=== PATIENT | male | born 1975 | race African-American/Black ===

== ENCOUNTER 2017-03-22 05:07 | Emergency (ER) | payer SELFPAY ==
[~2017-03-22] VITALS: Ht 182.9 cm; Wt 68.0 kg
[2017-03-22 05:20] VITALS: BP 124/85
[2017-03-22] MEDS ORDERED: DIPH25CA58 PO (05:45)
[2017-03-22] MEDS ORDERED: PRED50TA PO (05:45)
--- NOTE | 2017-03-22 05:45 | PHYS DOC ---
Past Medical History Past Medical History: No Pertinent History Past Surgical History: No Surgical History Alcohol Use: None Drug Use: None Adult General Chief Complaint Chief Complaint: INSECT BITE HPI HPI Patient is a 41 year old gentleman who presents here today secondary to swelling to his left upper lip that started last night. Patient reports that he was doing yard work yesterday when he felt an insect bite him on the lip and he had some swelling in that area. Patient took some Benadryl last night reports that the itching that he had on his body is improved however the swelling to his lip has remained the same. Patient denies any other symptomatology. Patient has any fevers shakes chills nausea vomiting diarrhea chest pain shortness of breath cough cold or rhinorrhea. Patient denies any wheezing. Patient denies any difficulty swallowing. Patient denies any globus sensation in his throat. Patient denies any history of hypertension. Patient is not any medications. Patient denies any new allergens that could've exacerbated this. Review of systems: Constitutional: Denies fever or chills Eyes: Denies change in visual acuity, redness, or eye pain HENT: Denies nasal congestion or sore throat All other review systems are negative except as documented in the history of present illness portion. Physical exam: Constitutional: Well developed, well nourished, no acute distress, non-toxic appearance. HENT: Normocephalic, atraumatic, bilateral external ears normal, nose normal. Eyes: EOMI, conjunctiva normal, no discharge. Neck: Normal range of motion, no tenderness, supple, no stridor. Cardiovascular:Heart rate regular rhythm Lungs & Thorax: Bilateral breath sounds clear to auscultation no respiratory distress Abdomen: Bowel sounds normal, soft, no tenderness, no masses, no pulsatile masses. Skin: Warm, dry, no erythema, no rash. Back: No tenderness, no CVA tenderness. Extremities: No tenderness, no cyanosis, no clubbing, ROM intact, no edema. Neurologic: Alert and oriented X 3, normal motor function, normal sensory function, no focal deficits noted. Psychologic: Affect normal, judgement normal, mood normal. Patient's left upper lip appears to be edematous with angioedema. Patient's airway is otherwise intact. Patient has no uvular edema. Patient has no tongue edema. Assessment and plan Angioedema of left upper lip. Patient's clinically hemodynamically stable without any evidence of airway compromise. Patient will be given a shot of Benadryl IM and by mouth prednisone will be sent home with both. Current Medications Current Medications Current Medications Medications (Trade) Dose Ordered Sig/Lolita Start Time Stop Time Status Last Admin Dose Admin Diphenhydramine HCl (Benadryl) 50 mg 1X ONCE 03/22/17 05:45 03/22/17 05:46 UNV Prednisone (Prednisone) 40 mg 1X ONCE 03/22/17 05:45 03/22/17 05:46 UNV Allergies Allergies Allergies Coded Allergies Type Severity Reaction Last Updated Verified No Known Drug Allergies 03/22/17 No Current Patient Data Vital Signs Vital Signs Date Time Temp Pulse Resp B/P (MAP) Pulse Ox O2 Delivery O2 Flow Rate FiO2 03/22/17 05:20 98.3 85 18 98 Room Air 98.3 EKG EKG [] Radiology/Procedures Radiology/Procedures [] Course & Med Decision Making Course & Med Decision Making Pertinent Labs and Imaging studies reviewed. (See chart for details) [] Dragon Disclaimer Dragon Disclaimer This electronic medical record was generated, in whole or in part, using a voice recognition dictation system. Departure Departure Impression: Primary Impression: Angioedema Additional Impression: Insect bite Disposition: HOME, SELF-CARE Condition: IMPROVED Referrals: NO PCP (PCP) Patient Instructions: Angioedema, Insect Bite Scripts Prednisone (PREDNISONE) 50 Mg Tablet 1 TAB PO DAILY, #5 TAB Prov: LIZETT CHO MD 03/22/17 Diphenhydramine Hcl (BENADRYL) 25 Mg Capsule 2 CAP PO Q6HRS Y for ITCHING, #14 CAP 2 Refills Prov: LIZETT CHO MD 03/22/17 Problem Qualifiers LIZETT CHO MD Mar 22, 2017 05:45
[2017-03-22] MEDS ORDERED: diphenhydrAMINE 50 MG/ML VIAL IM ONE (06:00)
[2017-03-22] MEDS ORDERED: predniSONE 20 MG TABLET PO ONE (06:00)
== END 2017-03-22 06:10 | disposition home or self-care (01) ==
LOC: ER 05:07
DX: T78.3XXA Angioneurotic edema, initial encounter (principal); S00.561A Insect bite (nonvenomous) of lip, initial encounter; W57.XXXA Bitten or stung by nonvenomous insect and other nonvenomous arthropods, initial encounter; Y93.89 Activity, other specified; Y92.89 Other specified places as the place of occurrence of the external cause; Y99.8 Other external cause status
CPT/HCPCS: 96372; 99283; J1200; J7512

== ENCOUNTER 2017-11-02 23:23 | Emergency (ER) | payer OTHER | END 2017-11-03 00:05 | disposition home or self-care (01) | LOC: ER 23:23 | DX: M72.2 Plantar fascial fibromatosis (principal); F20.9 Schizophrenia, unspecified | CPT/HCPCS: 99282 ==

== ENCOUNTER 2017-11-03 07:45 | Inpatient (IN) | payer MEDICAID, OTHER ==
[2017-11-03 08:27] LABS: ADD MAN DIFF? NO; BILIRUBIN,URINE NEGATIVE (NEG); CLARITY,URINE CLOUDY; COLOR,URINE YELLOW; GLUCOSE,URINE NEGATIVE (NEG); NITRITE,URINE NEGATIVE (NEG); PH,URINE 6.5; PROTEIN,URINE NEGATIVE (NEG-TRACE)
[2017-11-03 08:34] LABS: BASO # 0.1 x10^3/uL (0.0-0.2); BASO % 1 % (0-3); EOS # 0.2 x10^3/uL (0.0-0.7); EOS % 3 % (0-3); HEMOGLOBIN 14.5 g/dL (13.0-17.5); LYMPH # 1.7 x10^3/uL (1.0-4.8); LYMPH % 29 % (24-48); MEAN CORPUSCULAR HEMOGLOBIN 29 pg (25-35); MEAN CORPUSCULAR HGB CONC 34 g/dL (31-37); MEAN CORPUSCULAR VOLUME 87 fL (79-100); MONO # 0.6 x10^3/uL (0.0-1.1); MONO % 10 % (0-9); NEUT # 3.4 x10^3uL (1.8-7.7); NEUT % 57 % (31-73); PLATELET COUNT 221 x10^3/uL (140-400); RED BLOOD COUNT 4.94 x10^6/uL (4.30-5.70); RED CELL DISTRIBUTION WIDTH 13.9 % (11.5-14.5)
[2017-11-03 08:36] LABS: AMPHETAMINE/METHAMPHETAMINE NEG (NEG); BARBITURATES NEG (NEG); BENZODIAZEPINES NEG (NEG); CANNABINOIDS POS (NEG); COCAINE POS (NEG); ETHANOL, URINE NEG (NEG); METHADONE NEG (NEG); OPIATES NEG (NEG); PHENCYCLIDINE NEG (NEG)
[2017-11-03 08:38] LABS: ANION GAP 9 (6-14); BACTERIA,URINE FEW /HPF (0-FEW); BLOOD UREA NITROGEN 10 mg/dL (8-26); CALCIUM 9.1 mg/dL (8.5-10.1); CARBON DIOXIDE 27 mmol/L (21-32); CHLORIDE 105 mmol/L (98-107); CREATININE 1.3 mg/dL (0.7-1.3); GFR 73.3; GLUCOSE 115 mg/dL (70-99); POTASSIUM 3.9 mmol/L (3.5-5.1); RBC,URINE 0 /HPF (0-2); SODIUM 141 mmol/L (136-145); SQUAMOUS EPITHELIAL CELL,UR OCC /LPF
[2017-11-03 08:42] LABS: ACETAMIN < 2 mcg/ml (10-30); SALIC < 2.8 mg/dL (2.8-20.0)
[2017-11-03] MEDS ORDERED: ACETAMINOPHEN 325 MG TABLET. PO (15:15)
[2017-11-03] MEDS ORDERED: ONDANSETRON PF 4 MG/2 ML VIAL. IV (15:15)
[2017-11-03] MEDS: OLANZapine 5 MG TABLET PO (21:15)
[2017-11-04 03:14] LABS: HEMOGLOBIN A1C 5.4 % (4.8-5.6)
[2017-11-04] MEDS: OLANZapine 5 MG TABLET PO ×2 (09:00→21:00)
[2017-11-04] MEDS: ENOXAPARIN 40 MG/0.4 ML SYRINGE. SQ (13:00)
[2017-11-05] MEDS: OLANZapine 5 MG TABLET PO ×3 (09:00→20:39)
[2017-11-05] MEDS ORDERED: ZOLPIDEM 5 MG TABLET. PO (12:15)
[2017-11-05] MEDS: ENOXAPARIN 40 MG/0.4 ML SYRINGE. SQ (13:00)
[2017-11-05] MEDS: ZOLPIDEM 5 MG TABLET. PO (20:38)
[2017-11-06] MEDS: OLANZapine 5 MG TABLET PO (09:00)
[2017-11-06] MEDS: ENOXAPARIN 40 MG/0.4 ML SYRINGE. SQ (12:21)
== END 2017-11-06 19:33 | DRG 641 ==
LOC: ER 07:45 → 5 SOUTH 10:00
DX: R73.9 Hyperglycemia, unspecified (principal); R45.851 Suicidal ideations; F20.0 Paranoid schizophrenia; Z91.19 Patient's noncompliance with other medical treatment and regimen; Z79.899 Other long term (current) drug therapy
CPT/HCPCS: 36415; 80048; 80307; 80329; 81001; 83036; 85025; 87086; 93005; 99285; 99285-25

== ENCOUNTER 2018-08-20 22:15 | Emergency (ER) | payer MEDICAID ==
[~2018-08-20] VITALS: Ht 182.9 cm; Wt 68.0 kg
[~2018-08-20 22:15] MED LIST: DIPH25CA58 PO; IBUP-1060 PO; PRED50TA PO
[2018-08-20] MEDS: DEXAMETHASONE 4 MG TABLET PO ONE (23:24)
--- NOTE | 2018-08-20 23:35 | PHYS DOC ---
Past Medical History Past Medical History: Schizophrenia Additional Past Medical Histor: paranoid schizophrenia Past Surgical History: No Surgical History Smoking: Less than 1pk/day Alcohol Use: None Drug Use: None Adult General Chief Complaint Chief Complaint: FLU SYMPTOM HPI HPI Patient is a 42 year old male who presents with a one day history of nausea, vomiting, chills, and dry cough associated with dull chest pain after coughing with some wheezing. He has a history of paranoid schizophrenia and has been off his medication for 3 weeks because he doesn't think it has helped a whole lot and he wants to get this current illness figured out first. He states that he is able to eat and drink like regular he just has a little bit of nausea afterwards. He denies diarrhea, constipation, sick contacts, and reports that he hasn't had his flu shot this year. He states that his visual hallucinations have gotten worse over the past week but denies suicidal or homicidal ideation. Review of Systems Review of Systems Constitutional: Denies fever, reports chills [] Eyes: Denies change in visual acuity, redness, or eye pain [] HENT: Denies nasal congestion or sore throat [] Respiratory: Reports cough or shortness of breath [] Cardiovascular: Reports chest pain, denies palpitations [] GI: Denies abdominal pain, diarrhea; reports nausea, vomiting [] : Denies dysuria or hematuria [] Integument: Denies rash or skin lesions [] Neurologic: Denies headache, focal weakness or sensory changes [] Psychiatric: reports visual hallucinations, denies suicidal or homicidal ideation Complete systems were reviewed and found to be within normal limits, except as documented in this note. Current Medications Current Medications Current Medications Medications (Trade) Dose Ordered Sig/Lolita Start Time Stop Time Status Last Admin Dose Admin Dexamethasone (Decadron) 10 mg 1X ONCE 08/20/18 23:30 08/20/18 23:31 DC 08/20/18 23:24 10 MG Allergies Allergies Allergies Coded Allergies Type Severity Reaction Last Updated Verified No Known Drug Allergies 03/22/17 No Physical Exam Physical Exam Constitutional: Well developed, well nourished, no acute distress, non-toxic appearance. [] HENT: Normocephalic, atraumatic, nose normal, TMs clear, no pharyngeal erythema or exudates Eyes: Conjunctiva normal, no discharge. [] Neck: Normal range of motion, no tenderness, supple, no meningeal signs Cardiovascular: Heart rate regular rhythm, no murmur [] Lungs & Thorax: Bilateral breath sounds clear to auscultation [] Abdomen: Soft, no tenderness. [] Skin: Warm, dry, no erythema, no rash. [] Extremities: No tenderness, no edema. [] Neurologic: Alert and oriented X 3, no focal deficits noted. [] Psychologic: Affect anxious, judgement normal Current Patient Data Vital Signs Vital Signs Date Time Temp Pulse Resp B/P (MAP) Pulse Ox O2 Delivery O2 Flow Rate FiO2 08/20/18 22:20 97.3 90 18 159/91 (113) 98 Room Air 97.3 Lab Values Laboratory Tests Test 08/20/18 23:20 08/21/18 01:00 Influenza Type A Antigen Negative (NEGATIVE) Influenza Type B Antigen Negative (NEGATIVE) White Blood Count 6.4 x10^3/uL (4.0-11.0) Red Blood Count 5.43 x10^6/uL (4.30-5.70) Hemoglobin 16.9 g/dL (13.0-17.5) Hematocrit 48.3 % (39.0-53.0) Mean Corpuscular Volume 89 fL (79-100) Mean Corpuscular Hemoglobin 31 pg (25-35) Mean Corpuscular Hemoglobin Concent 35 g/dL (31-37) Red Cell Distribution Width 13.6 % (11.5-14.5) Platelet Count 189 x10^3/uL (140-400) Neutrophils (%) (Auto) 54 % (31-73) Lymphocytes (%) (Auto) 34 % (24-48) Monocytes (%) (Auto) 9 % (0-9) Eosinophils (%) (Auto) 2 % (0-3) Basophils (%) (Auto) 1 % (0-3) Neutrophils # (Auto) 3.4 x10^3uL (1.8-7.7) Lymphocytes # (Auto) 2.2 x10^3/uL (1.0-4.8) Monocytes # (Auto) 0.5 x10^3/uL (0.0-1.1) Eosinophils # (Auto) 0.1 x10^3/uL (0.0-0.7) Basophils # (Auto) 0.1 x10^3/uL (0.0-0.2) Sodium Level 139 mmol/L (136-145) Potassium Level 4.5 mmol/L (3.5-5.1) Chloride Level 104 mmol/L (98-107) Carbon Dioxide Level 24 mmol/L (21-32) Anion Gap 11 (6-14) Blood Urea Nitrogen 14 mg/dL (8-26) Creatinine 1.1 mg/dL (0.7-1.3) Estimated GFR (Cockcroft-Gault) 88.4 BUN/Creatinine Ratio 13 (6-20) Glucose Level 110 mg/dL (70-99) H Calcium Level 9.4 mg/dL (8.5-10.1) Magnesium Level 1.9 mg/dL (1.8-2.4) Total Bilirubin 0.5 mg/dL (0.2-1.0) Aspartate Amino Transferase (AST) 29 U/L (15-37) Alanine Aminotransferase (ALT) 31 U/L (16-63) Alkaline Phosphatase 91 U/L (46-116) Total Protein 7.4 g/dL (6.4-8.2) Albumin 3.9 g/dL (3.4-5.0) Albumin/Globulin Ratio 1.1 (1.0-1.7) Salicylates Level < 2.8 mg/dL (2.8-20.0) L Salicylate Last Dose Date Unknown Salicylate Last Dose Time Unknown Urine Opiates Screen Neg (NEG) Urine Methadone Screen Neg (NEG) Acetaminophen Level < 2 mcg/ml (10-30) L Acetaminophen Last Dose Date Unknown Acetaminophen Last Dose Time Unknown Urine Barbiturates Neg (NEG) Urine Phencyclidine Screen Neg (NEG) Urine Amphetamine/Methamphetamine Neg (NEG) Urine Benzodiazepines Screen Neg (NEG) Urine Cocaine Screen Neg (NEG) Urine Cannabinoids Screen Pos (NEG) Ethyl Alcohol Level < 10 mg/dL (0-10) Urine Ethyl Alcohol Neg (NEG) Laboratory Tests 08/21/18 01:00 Laboratory Tests 08/21/18 01:00 EKG EKG [] Radiology/Procedures Radiology/Procedures PROCEDURE: CHEST PA & LATERAL PROCEDURE: CHEST PA LATERAL CLINICAL INDICATION: COUGH COMPARISON: None FINDINGS: Heart is normal in size. Mild central bilateral peribronchial wall thickening is seen. No focal consolidation. No pneumothorax or pleural effusion. Visualized bony thorax within normal limits. IMPRESSION: Mild bronchitis. Electronically signed by: Alex Smith DO (08/20/2018 11:38 PM) [facility] Course & Med Decision Making Course & Med Decision Making Pertinent Labs and Imaging studies reviewed. (See chart for details) Patient is a 42 YO M that presented with flu-like symptoms that began yesterday. Patient reported persistent dry cough with chest pain after episodes of coughing. Rapid flu was negative and CXR showed mild bronchitis. One time dose of dexamethasone was administered in the ED and prescription for ProAir was provided. Patient reported increased hallucinations and was seeking help with management of his psychiatric illness, he was counselled on multiple options of psychiatric and guidance centers that could offer help. @0023 Patient was counselled on psychiatric illness and he stated that he needed a bed tonight, I explained that he was not in a situation to be admitted to an inpatient facility and he could call and follow up as an outpatient. At this point he stated that he was having suicidal thoughts where previously he had denied them. Reports the "hallucinations make him suicidal." @0130 PAT assessment completed, patient now changing story denying previous prescriptions for schizophrenia, awaiting laboratory values. Psych director home health to contact [facility] regarding patient for possible further psychiatric evaluation.. @0200 Web Applications Architect called [facility] refusing need for transfer at this time. Patient has been there multiple times previously. Patient does not want to be put on medications and is noncompliant. Web Applications Architect in agreement that patient is safe for discharge home with outpatient follow-up. Resources therefore provided. Patient stable for discharge with outpatient follow-up with PCP/psych. Discussed findings and plan with patient, who acknowledges understanding and agreement. Dragon Disclaimer Dragon Disclaimer This electronic medical record was generated, in whole or in part, using a voice recognition dictation system. Departure Departure Impression: Primary Impression: Bronchitis Additional Impressions: Hx of paranoid schizophrenia Hx of medication noncompliance Suicidal ideation Disposition: 01 HOME, SELF-CARE Condition: STABLE Referrals: NO PCP (PCP) Patient Instructions: Acute Bronchitis, [id number], Schizophrenia, Suicidal Feelings, How to Help Yourself Additional Instructions: Please follow up with outpatient psychiatric center. Please see handouts. Scripts Albuterol Sulfate (Proair Hfa) 8.5 Gm Hfa.aer.ad 1 PUFF INH PRN Q6HRS PRN for WHEEZING, #1 INHALER Prov: SELENA DENIS DO 08/21/18 Problem Qualifiers SELENA DENIS DO Aug 20, 2018 23:35
--- NOTE | 2018-08-20 23:43 | RAD ---
PROCEDURE: CHEST PA LATERAL CLINICAL INDICATION: COUGH COMPARISON: None FINDINGS: Heart is normal in size. Mild central bilateral peribronchial wall thickening is seen. No focal consolidation. No pneumothorax or pleural effusion. Visualized bony thorax within normal limits. IMPRESSION: Mild bronchitis. Electronically signed by: Alex Smith DO (08/20/2018 11:38 PM) [facility]
[2018-08-21 00:09] LABS: INFLUENZA A PATIENT NEGATIVE (NEGATIVE)
[2018-08-21 00:10] LABS: INFLUENZA B PATIENT NEGATIVE (NEGATIVE)
[2018-08-21] MEDS ORDERED: ALBU2.5V8 INH (00:18)
[2018-08-21 01:16] LABS: BARBITURATES NEG (NEG); BENZODIAZEPINES NEG (NEG); CANNABINOIDS POS (NEG); COCAINE NEG (NEG); METHADONE NEG (NEG); OPIATES NEG (NEG); PHENCYCLIDINE NEG (NEG)
[2018-08-21 01:26] LABS: AMPHETAMINE/METHAMPHETAMINE NEG (NEG); BASO # 0.1 x10^3/uL (0.0-0.2); BASO % 1 % (0-3); EOS # 0.1 x10^3/uL (0.0-0.7); EOS % 2 % (0-3); HEMATOCRIT 48.3 % (39.0-53.0); HEMOGLOBIN 16.9 g/dL (13.0-17.5); LYMPH # 2.2 x10^3/uL (1.0-4.8); LYMPH % 34 % (24-48); MEAN CORPUSCULAR HEMOGLOBIN 31 pg (25-35); MEAN CORPUSCULAR HGB CONC 35 g/dL (31-37); MEAN CORPUSCULAR VOLUME 89 fL (79-100); MONO # 0.5 x10^3/uL (0.0-1.1); MONO % 9 % (0-9); NEUT # 3.4 x10^3uL (1.8-7.7); NEUT % 54 % (31-73); PLATELET COUNT 189 x10^3/uL (140-400); RED BLOOD COUNT 5.43 x10^6/uL (4.30-5.70); RED CELL DISTRIBUTION WIDTH 13.6 % (11.5-14.5); WHITE BLOOD COUNT 6.4 x10^3/uL (4.0-11.0)
[2018-08-21 01:45] LABS: CALCIUM 9.4 mg/dL (8.5-10.1); CREATININE 1.1 mg/dL (0.7-1.3); GFR 88.4; POTASSIUM 4.5 mmol/L (3.5-5.1)
[2018-08-21 01:51] LABS: ACETAMIN < 2 mcg/ml (10-30); ALBUMIN 3.9 g/dL (3.4-5.0); ALBUMIN/GLOBULIN RATIO 1.1 (1.0-1.7); ETHANOL < 10 mg/dL (0-10); MAGNESIUM 1.9 mg/dL (1.8-2.4); SALIC < 2.8 mg/dL (2.8-20.0); TOTAL BILIRUBIN 0.5 mg/dL (0.2-1.0); TOTAL PROTEIN 7.4 g/dL (6.4-8.2)
[2018-08-21 02:30] VITALS: BP 153/90
== END 2018-08-21 03:00 | disposition home or self-care (01) ==
LOC: ER 22:15
DX: J40 Bronchitis, not specified as acute or chronic (principal); R45.851 Suicidal ideations; F17.200 Nicotine dependence, unspecified, uncomplicated; R44.1 Visual hallucinations; F20.0 Paranoid schizophrenia; Z91.14 Patient's other noncompliance with medication regimen
CPT/HCPCS: 36415; 71046; 80053; 80307; 80329; 83735; 85025; 87804; 99284; G0480; G6039; J8540

== ENCOUNTER 2019-04-18 21:43 | Emergency (ER) | payer MEDICAID ==
[~2019-04-18] VITALS: Ht 177.8 cm; Wt 68.0 kg
[~2019-04-18 21:43] MED LIST changes: +ALBU2.5V8 INH
[2019-04-18 21:56] VITALS: BP 143/85
[2019-04-18 22:57] LABS: BASO # 0.1 x10^3/uL (0.0-0.2); BASO % 1 % (0-3); EOS # 0.1 x10^3/uL (0.0-0.7); EOS % 2 % (0-3); HEMATOCRIT 40.5 % (39.0-53.0); LYMPH # 2.4 x10^3/uL (1.0-4.8); LYMPH % 39 % (24-48); MEAN CORPUSCULAR HEMOGLOBIN 30 pg (25-35); MEAN CORPUSCULAR HGB CONC 35 g/dL (31-37); MEAN CORPUSCULAR VOLUME 87 fL (79-100); MONO # 0.5 x10^3/uL (0.0-1.1); MONO % 9 % (0-9); NEUT % 49 % (31-73); PLATELET COUNT 210 x10^3/uL (140-400); RED BLOOD COUNT 4.66 x10^6/uL (4.30-5.70); RED CELL DISTRIBUTION WIDTH 13.5 % (11.5-14.5); WHITE BLOOD COUNT 6.2 x10^3/uL (4.0-11.0)
[2019-04-18 23:00] LABS: BILIRUBIN,URINE NEGATIVE (NEG); CLARITY,URINE CLEAR; COLOR,URINE YELLOW; NITRITE,URINE NEGATIVE (NEG); PROTEIN,URINE NEGATIVE (NEG-TRACE)
[2019-04-18 23:07] LABS: AMPHETAMINE/METHAMPHETAMINE NEG (NEG); BACTERIA,URINE FEW /HPF (0-FEW); BARBITURATES NEG (NEG); BENZODIAZEPINES NEG (NEG); CANNABINOIDS POS (NEG); COCAINE POS (NEG); METHADONE NEG (NEG); OPIATES NEG (NEG); PHENCYCLIDINE NEG (NEG); SQUAMOUS EPITHELIAL CELL,UR FEW /LPF
[2019-04-18 23:07] LABS: CREATININE 1.2 mg/dL (0.7-1.3); GFR 79.6; POTASSIUM 4.3 mmol/L (3.5-5.1)
[2019-04-18 23:13] LABS: ALBUMIN 3.3 g/dL (3.4-5.0); ALBUMIN/GLOBULIN RATIO 1.1 (1.0-1.7); MAGNESIUM 1.9 mg/dL (1.8-2.4); TOTAL BILIRUBIN 0.4 mg/dL (0.2-1.0); TOTAL PROTEIN 6.2 g/dL (6.4-8.2)
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
--- NOTE | 2019-04-19 07:17 | EKG ---
[facility] [address] [place] [address] Test Date: 2019-04-18 Test Time: 22:12:35 Pat Name: DANIEL NAVA Department: Room: Gender: M Television Cameraman: : 1975 Requested By: SELENA DENIS Order Number: [id number] Reading MD: Measurements Intervals [place] Rate: 78 P: 59 AL: 148 QRS: 64 QRSD: 86 T: 34 QT: 364 QTc: 418 Interpretive Statements SINUS RHYTHM OTHERWISE NORMAL ECG RI6.01 No previous ECG available for comparison
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
== END 2019-04-19 00:02 | disposition home or self-care (01) ==
LOC: ER 21:43
DX: S80.01XA Contusion of right knee, initial encounter (principal); F20.0 Paranoid schizophrenia; F12.10 Cannabis abuse, uncomplicated; F14.10 Cocaine abuse, uncomplicated; G43.909 Migraine, unspecified, not intractable, without status migrainosus; F17.210 Nicotine dependence, cigarettes, uncomplicated; Z88.8 Allergy status to other drugs, medicaments and biological substances; W22.8XXA Striking against or struck by other objects, initial encounter; Y93.89 Activity, other specified; Y92.89 Other specified places as the place of occurrence of the external cause; Y99.8 Other external cause status
CPT/HCPCS: 36415; 73562; 80053; 80307; 81001; 83605; 83735; 85025; 93005; 99285; G0480

== ENCOUNTER 2019-04-23 21:22 | Emergency (ER) | payer MEDICAID ==
[~2019-04-23] VITALS: Ht 182.9 cm; Wt 68.0 kg
[2019-04-23 21:22] VITALS: BP 142/90
[2019-04-23 21:49] LABS: BASO # 0.1 x10^3/uL (0.0-0.2); BASO % 1 % (0-3); EOS # 0.3 x10^3/uL (0.0-0.7); EOS % 4 % (0-3); HEMATOCRIT 44.7 % (39.0-53.0); HEMOGLOBIN 15.2 g/dL (13.0-17.5); LYMPH # 2.9 x10^3/uL (1.0-4.8); LYMPH % 45 % (24-48); MEAN CORPUSCULAR HEMOGLOBIN 30 pg (25-35); MEAN CORPUSCULAR HGB CONC 34 g/dL (31-37); MEAN CORPUSCULAR VOLUME 88 fL (79-100); MONO # 0.4 x10^3/uL (0.0-1.1); MONO % 6 % (0-9); NEUT # 2.8 x10^3/uL (1.8-7.7); NEUT % 44 % (31-73); PLATELET COUNT 241 x10^3/uL (140-400); RED CELL DISTRIBUTION WIDTH 14.1 % (11.5-14.5); WHITE BLOOD COUNT 6.4 x10^3/uL (4.0-11.0)
[2019-04-23 21:50] LABS: BILIRUBIN,URINE NEGATIVE (NEG); CLARITY,URINE CLEAR; COLOR,URINE YELLOW; NITRITE,URINE NEGATIVE (NEG); PROTEIN,URINE NEGATIVE (NEG-TRACE)
[2019-04-23 21:56] LABS: BARBITURATES NEG (NEG); BENZODIAZEPINES NEG (NEG); CANNABINOIDS POS (NEG); COCAINE POS (NEG); METHADONE NEG (NEG); OPIATES NEG (NEG); PHENCYCLIDINE NEG (NEG); SQUAMOUS EPITHELIAL CELL,UR FEW /LPF
[2019-04-23 21:57] LABS: AMPHETAMINE/METHAMPHETAMINE NEG (NEG); BACTERIA,URINE 0 /HPF (0-FEW); CALCIUM 9.2 mg/dL (8.5-10.1); CREATININE 1.1 mg/dL (0.7-1.3); POTASSIUM 4.1 mmol/L (3.5-5.1); RBC,URINE RARE /HPF (0-2); WBC,URINE OCC /HPF (0-4)
--- NOTE | 2019-04-23 21:57 | PHYS DOC ---
Past Medical History Past Medical History: Migraines, Schizophrenia Additional Past Medical Histor: paranoid schizophrenia Past Surgical History: No Surgical History Alcohol Use: Occasionally Drug Use: Marijuana Adult General Chief Complaint Chief Complaint: HALLUCINATIONS AUDIBLE/VISUAL HPI HPI 43-year-old male presents to the emergency Department with complaints of hallucinations. Patient is a known paranoid schizophrenic, he was seen here on April 18 with similar complaints. He describes hallucinations �3 weeks. Visual as well as auditory, he denies any suicidal or homicidal ideation. Patient was sent RSI on the and states he was discharged. He denies any chest pain, shortness breath, nausea, vomiting, abdominal pain, headache, visual changes. Review of Systems Review of Systems Constitutional: Denies fever or chills [] Respiratory: Denies cough or shortness of breath [] Cardiovascular: No additional information not addressed in HPI [] GI: Denies abdominal pain, nausea, vomiting, bloody stools or diarrhea [] Musculoskeletal: Denies back pain or joint pain [] Integument: Denies rash or skin lesions [] Neurologic: Denies headache, focal weakness or sensory changes [] All other systems were reviewed and found to be within normal limits, except as documented in this note. Allergies Allergies Allergies Coded Allergies Type Severity Reaction Last Updated Verified haloperidol Allergy Intermediate TARDIVE DISKINESIA 04/18/19 Yes Physical Exam Physical Exam Constitutional: Well developed, well nourished, no acute distress, non-toxic appearance. [] HENT: Normocephalic, atraumatic, bilateral external ears normal, oropharynx moist, no oral exudates, nose normal. [] Eyes: PERRLA, EOMI, conjunctiva normal, no discharge. [] Cardiovascular:Heart rate regular rhythm, no murmur [] Lungs & Thorax: Bilateral breath sounds clear to auscultation [] Abdomen: Bowel sounds normal, soft, no tenderness, no masses, no pulsatile masses. [] Skin: Warm, dry, no erythema, no rash. [] Extremities: No tenderness, no cyanosis, no clubbing, ROM intact, no edema. [] Neurologic: Alert and oriented X 3, no focal deficits noted. [] Psychologic: Flat affect Current Patient Data Vital Signs Vital Signs Date Time Temp Pulse Resp B/P (MAP) Pulse Ox O2 Delivery O2 Flow Rate FiO2 04/23/19 21:22 97.6 86 18 142/90 (107) 98 Room Air 97.6 Lab Values Laboratory Tests Test 04/23/19 21:40 White Blood Count 6.4 x10^3/uL (4.0-11.0) Red Blood Count 5.10 x10^6/uL (4.30-5.70) Hemoglobin 15.2 g/dL (13.0-17.5) Hematocrit 44.7 % (39.0-53.0) Mean Corpuscular Volume 88 fL (79-100) Mean Corpuscular Hemoglobin 30 pg (25-35) Mean Corpuscular Hemoglobin Concent 34 g/dL (31-37) Red Cell Distribution Width 14.1 % (11.5-14.5) Platelet Count 241 x10^3/uL (140-400) Neutrophils (%) (Auto) 44 % (31-73) Lymphocytes (%) (Auto) 45 % (24-48) Monocytes (%) (Auto) 6 % (0-9) Eosinophils (%) (Auto) 4 % (0-3) H Basophils (%) (Auto) 1 % (0-3) Neutrophils # (Auto) 2.8 x10^3/uL (1.8-7.7) Lymphocytes # (Auto) 2.9 x10^3/uL (1.0-4.8) Monocytes # (Auto) 0.4 x10^3/uL (0.0-1.1) Eosinophils # (Auto) 0.3 x10^3/uL (0.0-0.7) Basophils # (Auto) 0.1 x10^3/uL (0.0-0.2) Urine Collection Type Unknown Urine Color Yellow Urine Clarity Clear Urine pH 6.0 Urine Specific [place] 1.015 Urine Protein Negative mg/dL (NEG-TRACE) Urine Glucose (UA) Negative mg/dL (NEG) Urine Ketones (Stick) Negative mg/dL (NEG) Urine Blood Negative (NEG) Urine Nitrite Negative (NEG) Urine Bilirubin Negative (NEG) Urine Urobilinogen Dipstick 1.0 mg/dL (0.2 mg/dL) Urine Leukocyte Esterase Negative (NEG) Urine RBC Rare /HPF (0-2) Urine WBC Occ /HPF (0-4) Urine Squamous Epithelial Cells Few /LPF Urine Bacteria 0 /HPF (0-FEW) Urine Mucus Mod /LPF Sodium Level 145 mmol/L (136-145) Potassium Level 4.1 mmol/L (3.5-5.1) Chloride Level 108 mmol/L (98-107) H Carbon Dioxide Level 27 mmol/L (21-32) Anion Gap 10 (6-14) Blood Urea Nitrogen 9 mg/dL (8-26) Creatinine 1.1 mg/dL (0.7-1.3) Estimated GFR (Cockcroft-Gault) 88.0 BUN/Creatinine Ratio 8 (6-20) Glucose Level 111 mg/dL (70-99) H Calcium Level 9.2 mg/dL (8.5-10.1) Total Bilirubin 0.4 mg/dL (0.2-1.0) Aspartate Amino Transferase (AST) 20 U/L (15-37) Alanine Aminotransferase (ALT) 12 U/L (16-63) L Alkaline Phosphatase 80 U/L (46-116) Total Protein 6.9 g/dL (6.4-8.2) Albumin 3.6 g/dL (3.4-5.0) Albumin/Globulin Ratio 1.1 (1.0-1.7) Salicylates Level < 2.8 mg/dL (2.8-20.0) L Salicylate Last Dose Date Unk Salicylate Last Dose Time Unk Urine Opiates Screen Neg (NEG) Urine Methadone Screen Neg (NEG) Acetaminophen Level < 2 mcg/ml (10-30) L Acetaminophen Last Dose Date Unk Acetaminophen Last Dose Time Unk Urine Barbiturates Neg (NEG) Urine Phencyclidine Screen Neg (NEG) Urine Amphetamine/Methamphetamine Neg (NEG) Urine Benzodiazepines Screen Neg (NEG) Urine Cocaine Screen Pos (NEG) Urine Cannabinoids Screen Pos (NEG) Ethyl Alcohol Level < 10 mg/dL (0-10) Urine Ethyl Alcohol Pos (NEG) Laboratory Tests 04/23/19 21:40 Laboratory Tests 04/23/19 21:40 EKG EKG [] Radiology/Procedures Radiology/Procedures [] Course & Med Decision Making Course & Med Decision Making Pertinent Labs and Imaging studies reviewed. (See chart for details) []43-year-old male presents to the emergency Department with complaints of hallucinations. Patient is a known paranoid schizophrenic, he was seen here on April 18 with similar complaints. He describes hallucinations �3 weeks. Visual as well as auditory, he denies any suicidal or homicidal ideation. Patient was sent RSI on the and states he was discharged. He denies any chest pain, shortness breath, nausea, vomiting, abdominal pain, headache, visual changes. Labs reviewed, no acute abnormalities. PAT called for assessment. Patient planned for DC to [address] Assessment and Triage. Discussed with patient - plan for dc and cab voucher. Dragon Disclaimer Dragon Disclaimer This electronic medical record was generated, in whole or in part, using a voice recognition dictation system. Departure Departure Impression: Primary Impression: Hallucination Additional Impression: Paranoid schizophrenia Disposition: 05 TRANSFER OTHER Condition: STABLE Referrals: UNKNOWN PCP NAME (PCP) Patient Instructions: Hallucinations and Delusions, Schizophrenia Additional Instructions: Discharge to assessment center Labs reviewed without acute process Discussed dc plans with PAT security assessor and patient Problem Qualifiers VIRAL HENDRIX MD Apr 23, 2019 21:57
[2019-04-23 22:01] LABS: ACETAMIN < 2 mcg/ml (10-30); ETHANOL < 10 mg/dL (0-10); SALIC < 2.8 mg/dL (2.8-20.0)
[2019-04-23 22:02] LABS: ALBUMIN 3.6 g/dL (3.4-5.0); ALBUMIN/GLOBULIN RATIO 1.1 (1.0-1.7); TOTAL BILIRUBIN 0.4 mg/dL (0.2-1.0); TOTAL PROTEIN 6.9 g/dL (6.4-8.2)
== END 2019-04-24 01:25 | disposition home or self-care (01) ==
LOC: ER 21:22
DX: F20.0 Paranoid schizophrenia (principal); G43.909 Migraine, unspecified, not intractable, without status migrainosus; Z88.8 Allergy status to other drugs, medicaments and biological substances
CPT/HCPCS: 36415; 80053; 80307; 80329; 81001; 85025; 99284; G0480

== ENCOUNTER 2021-09-14 18:44 | Emergency (ER) | payer MEDICAID ==
[~2021-09-14] VITALS: Ht 182.9 cm; Wt 81.6 kg
--- NOTE | 2021-09-14 19:00 | PHYS DOC ---
Past Medical History Past Medical History: Migraines, Schizophrenia Additional Past Medical Histor: paranoid schizophrenia Past Surgical History: No Surgical History Smoking Status: Current Some Day Smoker Alcohol Use: Occasionally Drug Use: Marijuana General Adult EDM: Chief Complaint: HALLUCINATIONS AUDIBLE/VISUAL HPI: HPI: Patient is a 45 year old male with history of schizophrenia presenting today complaining of visual and auditory hallucinations, symptoms of been going on for weeks. Patient denies any suicidal or homicidal ideations. He states he is currently not on any psych medicines. Review of Systems: Review of Systems: constitutional: Denies fever or chills. [] Eyes: Denies change in visual acuity. [] HENT: Denies nasal congestion or sore throat. [] Respiratory: Denies cough or shortness of breath. [] Cardiovascular: Denies chest pain or edema. [] GI: Denies abdominal pain, nausea, vomiting, bloody stools or diarrhea. [] : Denies dysuria. [] Musculoskeletal: Denies back pain or joint pain. [] Integument: Denies rash. [] Neurologic: Denies headache, focal weakness or sensory changes. [] Endocrine: Denies polyuria or polydipsia. [] Lymphatic: Denies swollen glands. [] Psychiatric: Reports visual and auditory hallucinations Heart Score: C/O Chest Pain: N/A Risk Factors: Risk Factors: DM, Current or recent (<one month) smoker, HTN, HLP, family history of CAD, obesity. Risk Scores: Score 0 - 3: 2.5% MACE over next 6 weeks - Discharge Home Score 4 - 6: 20.3% MACE over next 6 weeks - Admit for Clinical Observation Score 7 - 10: 72.7% MACE over next 6 weeks - Early Invasive Strategies Allergies: Allergies: Allergies Coded Allergies Type Severity Reaction Last Updated Verified haloperidol Allergy Intermediate TARDIVE DISKINESIA 04/18/19 Yes Physical Exam: PE: Constitutional: Well developed, well nourished, no acute distress, non-toxic appearance. [] HENT: Normocephalic, atraumatic, bilateral external ears normal, oropharynx moist, no oral exudates, nose normal. [] Eyes: PERRLA, EOMI, conjunctiva normal, no discharge. [] Neck: Normal range of motion, no tenderness, supple, no stridor. [] Cardiovascular:Heart rate regular rhythm, no murmur [] Lungs & Thorax: Bilateral breath sounds clear to auscultation [] Abdomen: Bowel sounds normal, soft, no tenderness, no masses, no pulsatile masses. [] Skin: Warm, dry, no erythema, no rash. [] Back: No tenderness, no CVA tenderness. [] Extremities: No tenderness, no cyanosis, no clubbing, ROM intact, no edema. [] Neurologic: Alert and oriented X 3, normal motor function, normal sensory function, no focal deficits noted. [] Psychologic: Affect normal, judgement normal, mood normal. [] Current Patient Data: Vital Signs: Vital Signs Date Time Temp Pulse Resp B/P (MAP) Pulse Ox O2 Delivery O2 Flow Rate FiO2 09/14/21 18:50 98.2 85 18 124/74 (91) 98 Room Air 98.2 EKG: EKG: [] Radiology/Procedures: Radiology/Procedures: [] Course & Med Decision Making: Course & Med Decision Making Pertinent Labs and Imaging studies reviewed. (See chart for details) This is a 45-year-old male patient presenting to the ED today with visual and auditory hallucinations, symptoms have been going on for weeks. CBC, CMP, negative for any acute findings, patient refused to give us urine for UDS but reported to Manny from pat team that he has used cocaine, marijuana and alcohol in the last 24 hours Patient was accepted to [facility]. Will be transported by cab I Do Venues Disclaimer: Johnny Disclaimer: This electronic medical record was generated, in whole or in part, using a voice recognition dictation system. Departure Departure Impression: Primary Impression: Hallucinations, visual Additional Impression: Auditory hallucinations Disposition: 01 HOME / SELF CARE / HOMELESS Condition: STABLE Referrals: NO PCP (PCP) Please head to I Patient Instructions: Hallucinations and Delusions Additional Instructions: Please head to I TAIWO LEUNG APRN Sep 14, 2021 19:00
[2021-09-14 19:33] LABS: BASO # 0.1 x10^3/uL (0.0-0.2); BASO % 1 % (0-3); EOS # 0.1 x10^3/uL (0.0-0.7); EOS % 2 % (0-3); HEMATOCRIT 43.1 % (39.0-53.0); HEMOGLOBIN 14.2 g/dL (13.0-17.5); LYMPH # 2.4 x10^3/uL (1.0-4.8); LYMPH % 42 % (24-48); MEAN CORPUSCULAR HEMOGLOBIN 28 pg (25-35); MEAN CORPUSCULAR HGB CONC 33 g/dL (31-37); MEAN CORPUSCULAR VOLUME 86 fL (79-100); MONO # 0.5 x10^3/uL (0.0-1.1); MONO % 9 % (0-9); NEUT # 2.6 x10^3/uL (1.8-7.7); NEUT % 46 % (31-73); PLATELET COUNT 254 x10^3/uL (140-400); RED BLOOD COUNT 5.01 x10^6/uL (4.30-5.70); RED CELL DISTRIBUTION WIDTH 14.3 % (11.5-14.5); WHITE BLOOD COUNT 5.7 x10^3/uL (4.0-11.0)
[2021-09-14 19:41] LABS: CALCIUM 8.5 mg/dL (8.5-10.1); CREATININE 1.2 mg/dL (0.7-1.3); GFR 78.9; POTASSIUM 3.8 mmol/L (3.5-5.1)
[2021-09-14 19:47] LABS: ALBUMIN 3.4 g/dL (3.4-5.0); TOTAL BILIRUBIN 0.6 mg/dL (0.2-1.0); TOTAL PROTEIN 6.7 g/dL (6.4-8.2)
[2021-09-14 19:53] LABS: ETHANOL < 10 mg/dL (0-10); SALIC 1.3 mg/dL (2.8-20.0)
[2021-09-14 19:54] LABS: ACETAMIN < 2.0 mcg/ml (10-30)
[2021-09-14 20:36] VITALS: BP 119/61
== END 2021-09-14 22:13 ==
LOC: ER 18:44
DX: R44.1 Visual hallucinations (principal); R44.0 Auditory hallucinations; Z20.822 Contact with and (suspected) exposure to COVID-19; G43.909 Migraine, unspecified, not intractable, without status migrainosus; F17.200 Nicotine dependence, unspecified, uncomplicated; Z88.8 Allergy status to other drugs, medicaments and biological substances
CPT/HCPCS: 80053; 80329; 85025; 87426; 99283; C9803; G0480; U0003

== ENCOUNTER 2021-10-13 20:36 | Emergency (ER) | payer MEDICAID ==
[~2021-10-13] VITALS: Ht 182.9 cm; Wt 77.0 kg
[2021-10-13 20:40] VITALS: BP 119/60
--- NOTE | 2021-10-13 21:26 | ED.ADGEN ---
Past Medical History Past Medical History: Migraines, Schizophrenia Additional Past Medical Histor: paranoid schizophrenia Past Surgical History: No Surgical History Smoking Status: Current Every Day Smoker Alcohol Use: Occasionally Drug Use: Marijuana General Adult EDM: Chief Complaint: PSYCH EVALUATION HPI: HPI: Patient is a 45 year old male coming in via EMS for complaints of low mid back pain and requesting a psychiatric evaluation. Patient states that about 6 weeks ago he was lifting a tire with his brother where he felt onset of low back pain. Patient states he has been doing his own "physical therapy" tried alleviate the pain. Patient states that he is hearing voices and would like help with marijuana use. He endorses a history of schizophrenia but does not take medications. Patient states the use marijuana and alcohol occasionally. Denies SI or HI Review of Systems: Review of Systems: All other systems within normal limits except for as noted in the HPI Current Medications: Current Medications Medications (Trade) Dose Ordered Sig/Lolita Start Time Stop Time Status Last Admin Dose Admin Lidocaine (Lidoderm) 1 patch 1X ONCE 10/14/21 01:00 10/14/21 01:01 Allergies: Allergies: Allergies Coded Allergies Type Severity Reaction Last Updated Verified haloperidol Allergy Intermediate TARDIVE DISKINESIA 04/18/19 Yes Physical Exam: PE: Constitutional: Well developed, well nourished, no acute distress, non-toxic appearance. [] HENT: Normocephalic, atraumatic, bilateral external ears normal, nose normal. [] Eyes: PERRLA, conjunctiva normal, no discharge. [] Neck: No rigidity, supple, no stridor. [] Cardiovascular: Regular rate and rhythm, brisk cap refill [] Lungs & Thorax: Non labored symmetric respirations, no tachypnea or respiratory distress [] Abdomen: Soft, nondistended. Skin: Warm, dry, no erythema, no rash. [] Back: Unremarkable, no step-off deformity, tenderness in upper lumbar Extremities: No deformities, range of motion grossly intact, no lower extremity edema [] Neurologic: Alert and oriented X 3, no focal deficits noted. [] Psychologic: Affect normal, judgement questionable, mood normal. [] Current Patient Data: Labs: Laboratory Tests Test 10/13/21 20:57 10/13/21 21:00 10/13/21 21:35 Urine Collection Type Unknown Urine Color Yellow Urine Clarity Clear Urine pH 5.5 (<5.0-8.0) Urine Specific [place] 1.025 (1.000-1.030) Urine Protein Negative mg/dL (NEG-TRACE) Urine Glucose (UA) Negative mg/dL (NEG) Urine Ketones (Stick) Negative mg/dL (NEG) Urine Blood Negative (NEG) Urine Nitrite Negative (NEG) Urine Bilirubin Negative (NEG) Urine Urobilinogen Dipstick 0.2 mg/dL (0.2 mg/dL) Urine Leukocyte Esterase Negative (NEG) Urine RBC 0 /HPF (0-2) Urine WBC 1-4 /HPF (0-4) Urine Squamous Epithelial Cells Occ /LPF Urine Bacteria 0 /HPF (0-FEW) Urine Mucus Mod /LPF Urine Opiates Screen Neg (NEG) Urine Methadone Screen Neg (NEG) Urine Barbiturates Neg (NEG) Urine Phencyclidine Screen Pos (NEG) Urine Amphetamine/Methamphetamine Neg (NEG) Urine Benzodiazepines Screen Neg (NEG) Urine Cocaine Screen Neg (NEG) Urine Cannabinoids Screen Pos (NEG) Urine Ethyl Alcohol Neg (NEG) Influenza Type A Antigen Negative (NEGATIVE) Influenza Type B Antigen Negative (NEGATIVE) SARS-CoV-2 Antigen (Rapid) Negative (NEGATIVE) White Blood Count 6.4 x10^3/uL (4.0-11.0) Red Blood Count 5.29 x10^6/uL (4.30-5.70) Hemoglobin 15.1 g/dL (13.0-17.5) Hematocrit 45.5 % (39.0-53.0) Mean Corpuscular Volume 86 fL (79-100) Mean Corpuscular Hemoglobin 29 pg (25-35) Mean Corpuscular Hemoglobin Concent 33 g/dL (31-37) Red Cell Distribution Width 14.1 % (11.5-14.5) Platelet Count 263 x10^3/uL (140-400) Neutrophils (%) (Auto) 41 % (31-73) Lymphocytes (%) (Auto) 47 % (24-48) Monocytes (%) (Auto) 7 % (0-9) Eosinophils (%) (Auto) 3 % (0-3) Basophils (%) (Auto) 1 % (0-3) Neutrophils # (Auto) 2.6 x10^3/uL (1.8-7.7) Lymphocytes # (Auto) 3.1 x10^3/uL (1.0-4.8) Monocytes # (Auto) 0.5 x10^3/uL (0.0-1.1) Eosinophils # (Auto) 0.2 x10^3/uL (0.0-0.7) Basophils # (Auto) 0.1 x10^3/uL (0.0-0.2) Sodium Level 141 mmol/L (136-145) Potassium Level 3.8 mmol/L (3.5-5.1) Chloride Level 104 mmol/L (98-107) Carbon Dioxide Level 27 mmol/L (21-32) Anion Gap 10 (6-14) Blood Urea Nitrogen 7 mg/dL (8-26) L Creatinine 1.1 mg/dL (0.7-1.3) Estimated GFR (Cockcroft-Gault) 87.2 BUN/Creatinine Ratio 6 (6-20) Glucose Level 137 mg/dL (70-99) H Calcium Level 9.4 mg/dL (8.5-10.1) Total Bilirubin 0.4 mg/dL (0.2-1.0) Aspartate Amino Transferase (AST) 19 U/L (15-37) Alanine Aminotransferase (ALT) 20 U/L (16-63) Alkaline Phosphatase 86 U/L (46-116) Total Protein 7.5 g/dL (6.4-8.2) Albumin 3.7 g/dL (3.4-5.0) Albumin/Globulin Ratio 1.0 (1.0-1.7) Ethyl Alcohol Level < 10 mg/dL (0-10) Laboratory Tests 10/13/21 21:35 Laboratory Tests 10/13/21 21:35 Vital Signs: Vital Signs Date Time Temp Pulse Resp B/P (MAP) Pulse Ox O2 Delivery O2 Flow Rate FiO2 10/13/21 20:40 98.1 95 16 119/60 (79) 97 Room Air 98.1 EKG: EKG: [] Heart Score: C/O Chest Pain: No Risk Factors: Risk Factors: DM, Current or recent (<one month) smoker, HTN, HLP, family history of CAD, obesity. Risk Scores: Score 0 - 3: 2.5% MACE over next 6 weeks - Discharge Home Score 4 - 6: 20.3% MACE over next 6 weeks - Admit for Clinical Observation Score 7 - 10: 72.7% MACE over next 6 weeks - Early Invasive Strategies Radiology/Procedures: Radiology/Procedures: [facility] [address] [place] [address] IMAGING REPORT Signed PATIENT: DANIEL NAVA ACCOUNT: [id number] : 1975 LOCATION: ER AGE: 45 SEX: M EXAM STATUS: REG ER ORD. PHYSICIAN: CHARBEL RAMIREZ MD REASON: upper lumbar pain PROCEDURE: CT LUMBAR SPINE WO CONTRAST CT lumbar spine without contrast PQRS statement: CT scans at this facility use dose reduction including either automated exposure control, iterative reconstructions, and /or weight based radiation dosing via mA and kV modification when appropriate to reduce radiation dose to as low as reasonably achievable. HISTORY: Upper lumbar pain. FINDINGS: Lumbar vertebral body height and alignment intact. There is mild grade 1 retrolisthesis of 3 mm of L5 on S1 associated with disc disease. No fracture. No spondylolysis defect. No bone lesion evident. There is mild calcified plaque in the aorta and iliac arteries. Paraspinal tissues are normal. Lumbar disc disease as described below. L1-L2: Normal. L2-L3: Probable shallow disc bulge. Bony spinal canal and neural foramina are grossly patent. L3-L4: Mild disc bulge. There may be mild narrowing of the neural foramina. Bony spinal canal grossly patent. L4-L5: Mild disc bulge. There may be mild neural foraminal stenoses. Bony spinal canal grossly patent. L5-S1: Marked disc height loss, vacuum disc phenomenon, there is a circumferential disc bulge with disc osteophyte and superimposed central broad- based disc herniation likely present, this may contribute to [id number] spinal canal stenosis there may also be some narrowing by the disc protrusion of the lateral recesses about the S1 nerve roots. There are moderate to severe neural foraminal stenoses. IMPRESSION: No acute osseous injury of the lumbar spine. Lumbar disc disease as described above. Electronically signed by: Haim David MD (10/13/2021 10:56 PM) [facility] DICTATED and SIGNED BY: HAIM DAVID MD DATE: 10/13/21 [id number] [] Course & Med Decision Making: Course & Med Decision Making Pertinent Labs and Imaging studies reviewed. (See chart for details) Patient medically cleared for PAT evaluation. Patient safety plan. Had been given option to go to [facility]. Patient requested to follow-up in [place]. Patient states he has a safe place to stay tonight and in the morning will call the numbers for the facilities he was given. [] Dragon Disclaimer: Dragalexandria Disclaimer: This electronic medical record was generated, in whole or in part, using a voice recognition dictation system. Departure Departure Impression: Primary Impression: Auditory hallucinations Additional Impression: Low back pain Disposition: HOME / SELF CARE / HOMELESS Condition: STABLE Referrals: NO PCP (PCP) Patient Instructions: Back Exercises Problem Qualifiers CHARBEL RAMIREZ MD Oct 13, 2021 21:26
[2021-10-13 21:28] LABS: BILIRUBIN,URINE NEGATIVE (NEG); CLARITY,URINE CLEAR; COLOR,URINE YELLOW; NITRITE,URINE NEGATIVE (NEG); PH,URINE 5.5 (<5.0-8.0); PROTEIN,URINE NEGATIVE (NEG-TRACE); UROBILINOGEN,URINE 0.2 mg/dL (0.2 mg/dL)
[2021-10-13 21:31] LABS: BACTERIA,URINE 0 /HPF (0-FEW); RBC,URINE 0 /HPF (0-2)
[2021-10-13 21:40] LABS: BARBITURATES NEG (NEG); BENZODIAZEPINES NEG (NEG); CANNABINOIDS POS (NEG); COCAINE NEG (NEG); METHADONE NEG (NEG); OPIATES NEG (NEG); PHENCYCLIDINE POS (NEG)
[2021-10-13 21:44] LABS: AMPHETAMINE/METHAMPHETAMINE NEG (NEG)
[2021-10-13 21:49] LABS: BASO # 0.1 x10^3/uL (0.0-0.2); BASO % 1 % (0-3); EOS # 0.2 x10^3/uL (0.0-0.7); EOS % 3 % (0-3); HEMATOCRIT 45.5 % (39.0-53.0); HEMOGLOBIN 15.1 g/dL (13.0-17.5); LYMPH # 3.1 x10^3/uL (1.0-4.8); LYMPH % 47 % (24-48); MEAN CORPUSCULAR HEMOGLOBIN 29 pg (25-35); MEAN CORPUSCULAR HGB CONC 33 g/dL (31-37); MEAN CORPUSCULAR VOLUME 86 fL (79-100); MONO # 0.5 x10^3/uL (0.0-1.1); MONO % 7 % (0-9); NEUT # 2.6 x10^3/uL (1.8-7.7); NEUT % 41 % (31-73); PLATELET COUNT 263 x10^3/uL (140-400); RED BLOOD COUNT 5.29 x10^6/uL (4.30-5.70); RED CELL DISTRIBUTION WIDTH 14.1 % (11.5-14.5); WHITE BLOOD COUNT 6.4 x10^3/uL (4.0-11.0)
[2021-10-13 22:01] LABS: CALCIUM 9.4 mg/dL (8.5-10.1); CREATININE 1.1 mg/dL (0.7-1.3); GFR 87.2; POTASSIUM 3.8 mmol/L (3.5-5.1)
[2021-10-13 22:04] LABS: ALBUMIN 3.7 g/dL (3.4-5.0); TOTAL BILIRUBIN 0.4 mg/dL (0.2-1.0); TOTAL PROTEIN 7.5 g/dL (6.4-8.2)
[2021-10-13 22:24] LABS: INFLUENZA A PATIENT NEGATIVE (NEGATIVE); INFLUENZA B PATIENT NEGATIVE (NEGATIVE)
--- NOTE | 2021-10-13 22:59 | RAD ---
CT lumbar spine without contrast PQRS statement: CT scans at this facility use dose reduction including either automated exposure cont rol, iterative reconstructions, and /or weight based radiation dosing via mA and kV modification when appropriate to reduce radiation dose to as low as reasonably achievable. HISTORY: Upper lumbar pain. FINDINGS: Lumbar vertebral body height and alignment intact. There is mild grade 1 retrolisthesis of 3 mm of L5 on S1 associated with disc disease. No fracture. No spondylolysis defect. No bone lesion e vident. There is mild calcified plaque in the aorta and iliac arteries. Paraspinal tissues are normal . Lumbar disc disease as described below. L1-L2: Normal. L2-L3: Probable shallow disc bulge. Bony spinal canal and neural foramina are grossly patent. L3-L4: Mild disc bulge. There may be mild narrowing of the neural foramina. Bony spinal canal grossly patent. L4-L5: Mild disc bulge. There may be mild neural foraminal stenoses. Bony spinal canal grossly patent . L5-S1: Marked disc height loss, vacuum disc phenomenon, there is a circumferential disc bulge with di sc osteophyte and superimposed central broad-based disc herniation likely present, this may contribut e to [id number] spinal canal stenosis there may also be some narrowing by the disc protrusion o f the lateral recesses about the S1 nerve roots. There are moderate to severe neural foraminal stenos es. IMPRESSION: No acute osseous injury of the lumbar spine. Lumbar disc disease as described above. Electronically signed by: Jesús David MD (10/13/2021 10:56 PM) [facility]
[2021-10-14] MEDS ORDERED: LIDOCAINE (700MG/PATCH) PATCH. TD ONE (01:00)
== END 2021-10-14 01:00 | disposition home or self-care (01) ==
LOC: ER 20:36
DX: R44.0 Auditory hallucinations (principal); M54.6 Pain in thoracic spine; Z20.822 Contact with and (suspected) exposure to COVID-19; M54.50 Low back pain, unspecified; G43.909 Migraine, unspecified, not intractable, without status migrainosus; F17.200 Nicotine dependence, unspecified, uncomplicated; Z88.8 Allergy status to other drugs, medicaments and biological substances
CPT/HCPCS: 72131; 80053; 80307; 81001; 85025; 87428; 99284; C9803; G0480; U0003